=== PATIENT | female | born 1990 | race Caucasian/White ===

== ENCOUNTER 2019-06-09 23:48 | Emergency (ER) | payer OTHER ==
[~2019-06-09] VITALS: Ht 162.6 cm; Wt 51.7 kg
[~2019-06-09 23:48] MED LIST: IBUP-1542 PO; ONDA4TAB14 PO
[2019-06-09 23:51] VITALS: Ht 162.6 cm; Wt 51.7 kg
[2019-06-10] MEDS ORDERED: SOD CHLORIDE 0.9% 1,000 ML IV STA (00:50)
[2019-06-10] MEDS ORDERED: ONDANSETRON 4 MG INJ IV STA (00:50)
[2019-06-10] MEDS ORDERED: morphine 4 MG/ML VIAL IV STA (00:50)
[2019-06-10 02:23] VITALS: BP 100/64; PULSE 73; RESP 17
== END 2019-06-10 02:24 | disposition home or self-care (01) ==
LOC: FTE 23:48
DX: R10.33 Periumbilical pain (principal)
CPT/HCPCS: 36415; 80053; 81001; 81025; 83690; 84702; 85025; 96374; 96375; J2270; J2405; J7030; Z7502